=== PATIENT | female | born 1960 | race African-American/Black ===

== ENCOUNTER 2017-03-12 18:59 | Emergency (ER) | payer OTHER ==
[~2017-03-12] VITALS: Ht 160 cm; Wt 90.0 kg
[~2017-03-12 18:59] MED LIST: CARI350T PO; HYDR-3971 PO; [UNRECOGNIZED DRUG - REMARK]
[2017-03-12] MEDS ORDERED: ONDANSETRON HCL 4 MG TABLET PO ONE (21:15)
[2017-03-12] MEDS ORDERED: PERTUSS(ACELL),DIPH,TET VAC/PF 0.5 ML VIAL IM ONE (21:15)
[2017-03-12] MEDS ORDERED: OxyCODONE HCL/ACETAMINOPHEN 5-325 MG TABLET PO ONE (21:15)
[2017-03-12] MEDS ORDERED: LIDOCAINE HCL BUFFERED 1% 20 ML VIAL INJ ONE (21:15)
[2017-03-12 21:33] VITALS: BP 119/72
== END 2017-03-12 22:01 | disposition home or self-care (01) ==
LOC: EMS 19:01
DX: S01.511A Laceration without foreign body of lip, initial encounter (principal); I10 Essential (primary) hypertension; F11.90 Opioid use, unspecified, uncomplicated; Z86.73 Personal history of transient ischemic attack (TIA), and cerebral infarction without residual deficits; W01.0XXA Fall on same level from slipping, tripping and stumbling without subsequent striking against object, initial encounter; Y93.89 Activity, other specified; Y92.89 Other specified places as the place of occurrence of the external cause; Y99.8 Other external cause status
CPT/HCPCS: 12011; 99283; J3490; Q0162

== ENCOUNTER 2017-09-03 21:22 | Emergency (ER) | payer OTHER ==
[~2017-09-03] VITALS: Ht 160 cm; Wt 53.0 kg
[2017-09-03] MEDS ORDERED: CARI350 PO (22:00)
[2017-09-03] MEDS ORDERED: ZOLP10TA7 PO (22:00)
[2017-09-03] MEDS ORDERED: OXYC15TA2 PO (22:00)
[2017-09-04] MEDS ORDERED: HYDROCODONE/ACETAMINOPHEN 5-325 MG TABLET PO ONE
[2017-09-04 01:02] VITALS: BP 114/78
== END 2017-09-04 01:09 | disposition home or self-care (01) ==
LOC: EMS 21:23
DX: S20.212A Contusion of left front wall of thorax, initial encounter (principal); I10 Essential (primary) hypertension; F11.90 Opioid use, unspecified, uncomplicated; Z86.73 Personal history of transient ischemic attack (TIA), and cerebral infarction without residual deficits; W19.XXXA Unspecified fall, initial encounter; Y93.89 Activity, other specified; Y92.89 Other specified places as the place of occurrence of the external cause; Y99.8 Other external cause status
CPT/HCPCS: 71010; 71020; 99284; G0238